=== PATIENT | male | born 2000 | race Caucasian/White ===

== ENCOUNTER 2020-03-23 00:39 | Emergency (ER) | payer OTHER ==
[~2020-03-23] VITALS: Ht 185.4 cm; Wt 97.5 kg
[2020-03-23 00:43] VITALS: BP 129/69; Ht 185.4 cm; Wt 97.5 kg
== END 2020-03-23 02:43 | disposition home or self-care (01) ==
LOC: ED 00:39
DX: S51.811A Laceration without foreign body of right forearm, initial encounter (principal); S50.812A Abrasion of left forearm, initial encounter; S50.811A Abrasion of right forearm, initial encounter; W23.0XXA Caught, crushed, jammed, or pinched between moving objects, initial encounter; Y93.I9 Activity, other involving external motion; Y92.89 Other specified places as the place of occurrence of the external cause; Y99.8 Other external cause status
CPT/HCPCS: 90715; J2001

== ENCOUNTER 2020-06-01 04:39 | Emergency (ER) | payer OTHER ==
[~2020-06-01] VITALS: Ht 185.4 cm; Wt 97.5 kg
[2020-06-01 04:56] VITALS: Ht 185.4 cm; Wt 97.5 kg
[2020-06-01 05:05] LABS: BASOPHIL % 0.4 % (0-2); PLATELET COUNT 297 x10^3mcL (130-400); RED CELL DISTRIBUTION WIDTH 13.4 % (11.5-14.5)
[2020-06-01 05:14] LABS: CALCIUM 8.1 mg/dL (8.5-10.1); CARBON DIOXIDE 21.5 mmol/L (21-32); CHLORIDE SERUM 101 mmol/L (98-107); CREATININE SERUM 1.2 mg/dL (0.7-1.3); GFR1 > 60 mL/min; GLUCOSE SERUM 105 mg/dL (74-106); POTASSIUM SERUM 3.5 mmol/L (3.5-5.1); SODIUM SERUM 139 mmol/L (136-145)
[2020-06-01 07:00] VITALS: BP 133/78
== END 2020-06-01 07:00 | disposition home or self-care (01) ==
LOC: ED 04:39
PROVIDERS: Emergency Medicine
DX: S63.105A Unspecified dislocation of left thumb, initial encounter (principal); S01.01XA Laceration without foreign body of scalp, initial encounter; Y04.8XXA Assault by other bodily force, initial encounter; Y93.89 Activity, other specified; Y92.89 Other specified places as the place of occurrence of the external cause; Y99.8 Other external cause status
CPT/HCPCS: G0480; J2270; Q0092